=== PATIENT | female | born 1990 | race Caucasian/White ===

== ENCOUNTER 2017-04-09 11:18 | Emergency (ER) | payer OTHER ==
[~2017-04-09] VITALS: Ht 160 cm; Wt 101.0 kg
[~2017-04-09 11:18] MED LIST: FERR-18 PO; PREN1TAB49 PO
[2017-04-09 11:31] VITALS: Ht 160 cm; Wt 101.0 kg
[2017-04-09] MEDS ORDERED: ACET325T33 PO (11:50)
--- NOTE | 2017-04-09 11:54 | ERD ---
ER Documentation Chief Complaint Date/Time DATE: 04/09/17 TIME: 11:53 Chief Complaint sore throat x 2 days HPI 27-year-old female presents with sore throat for 2 days. Denies fever. Denies any difficulty swallowing. Does have mild pain with swallowing. Denies any nausea or vomiting. Denies cough. Has not taken any medications at home. ROS All systems reviewed and are negative except as per history of present illness. Medications Home Meds Active Scripts Acetaminophen* (Tylenol*) 325 Mg Tablet, 2 TAB PO Q6 Y for PAIN AND OR ELEVATED TEMP, #20 TAB Prov:JAYCEE GUTIERREZ PA-C 04/09/17 Reported Medications Ferrous Sulfate (Iron) 325 Mg Tablet, 325 MG PO DAILY 03/11/12 Vits W-Ca,Fe,Fa(<1MG) () 1 Tab Tablet, 1 TAB PO DAILY 03/11/12 Allergies Allergies: Coded Allergies: No Known Allergy (Unverified , 09/27/14) NKA/ANTERPARTAM SHEET 03/11/12 PMhx/Soc Medical and Surgical Hx: pt denies Medical Hx, pt denies Surgical Hx Hx Miscellaneous Medical Probl: Yes (dx: 12 wks preeclampsia) Hx Alcohol Use: No Hx Substance Use: No Hx Tobacco Use: No Smoking Status: Never smoker FmHx Family History: No diabetes Physical Exam Vitals Vital Signs Date Time Temp Pulse Resp B/P Pulse Ox O2 Delivery O2 Flow Rate FiO2 04/09/17 11:31 99.0 106 18 155/86 98 Physical Exam General: well developed, well nourished, alert, nontoxic, no distress Head: normocephalic, atraumatic Neck: Supple, nontender, no lymphadenopathy, no midline tenderness Oropharynx: no tonsilar erythema or edema, uvula midline, no exudates, no kissing tonsils, no drooling Respiratory: Clear to auscaultation bilaterally, speaks in full sentences, no use of accesory muscles or labored breathing, no rales, ronchi, or wheezing Cardiovascular: RRR, No murmurs GI: soft, non tender, non distended, negative murphys sign, negative mcburneys point tenderness Procedures/MDM Patient has sore throat. Vital signs are stable she is well-appearing. No evidence of bacterial pharyngitis is most likely viral recommended Tylenol at home and I gave her prescription. Recommended this patient follow up with her primary care doctor within 48 hours or return to the emergency room for any worsening of symptoms. However this time I do believe there is suitable for outpatient management. I answered all their questions and they agreed with the plan and were discharged home. Departure Diagnosis: Primary Impression: Pharyngitis Condition: Stable Patient Instructions: Pharyngitis, Viral Additional Instructions: Call your primary care doctor TOMORROW for an appointment during the next 1-2 days.See the doctor sooner or return here if your condition worsens before your appointment time. JAYCEE GUTIERREZ PA-C April 09, 2017 11:54
== END 2017-04-09 12:00 | disposition home or self-care (01) ==
LOC: FTE 11:18
DX: J02.9 Acute pharyngitis, unspecified (principal)
CPT/HCPCS: 99283